=== PATIENT | male | born 1950 | race Caucasian/White ===

== ENCOUNTER 2016-03-30 12:30 | Outpatient (CLI) | payer MEDICARE, OTHER | END 2016-03-30 12:31 | disposition home or self-care (01) | DX: J11.89 Influenza due to unidentified influenza virus with other manifestations (principal) ==

== ENCOUNTER 2016-05-29 11:44 | Outpatient (CLI) | payer MEDICARE, BC | END 2016-05-29 11:45 | disposition home or self-care (01) | DX: G47.33 Obstructive sleep apnea (adult) (pediatric) (principal) | CPT/HCPCS: 99213; G0463 ==

== ENCOUNTER 2016-10-12 08:51 | Outpatient (CLI) | payer MEDICARE, BC ==
[2016-10-12 12:41] LABS: HCT - HEMATOCRIT 39.2 % (42.0-52.0); HGB - HEMOGLOBIN 13.3 g/dL (14.0-18.0); MEAN CORPUSCULAR HEMOGLOBIN 28.7 pg (27.0-31.0); MEAN CORPUSCULAR VOLUME 84.4 fL (80.0-94.0); MEAN PLATELET VOLUME 9.2 fL (7.4-11.4); RED BLOOD COUNT 4.65 10^6/uL (4.70-6.10); RED CELL DISTRIBUTION WIDTH 14.3 % (12.0-15.0); WHITE BLOOD COUNT 5.9 x10^3/uL (4.8-10.8)
[2016-10-14 12:37] LABS: ANA SCREEN NEGATIVE (NEGATIVE)
== END 2016-10-12 08:52 | disposition home or self-care (01) ==
LOC: LAB.WCP 08:51
PROVIDERS: ATTEND Family Medicine
DX: M19.90 Unspecified osteoarthritis, unspecified site (principal)
CPT/HCPCS: 36415; 84550; 85651; 86038; 86430

== ENCOUNTER 2016-12-18 08:00 | Outpatient (CLI) | payer MEDICARE, BC ==
[2016-12-18 19:37] LABS: CALCIUM 9.2 mg/dL (8.5-10.3); CARBON DIOXIDE - CO2 25 mmol/L (21-32); CHLORIDE 103 mmol/L (101-111); CHOLESTEROL 136 mg/dL; GLUCOSE 85 mg/dL (70-100); SODIUM 139 mmol/L (135-145)
[2016-12-18 20:02] LABS: ALBUMIN/GLOBULIN RATIO 1.3 (1.0-2.2); BILIRUBIN,TOTAL 0.8 mg/dL (0.2-1.0); BUN - BLOOD UREA NITROGEN 25 mg/dL (6-20); CHOL/HDL RATIO 4.4 (<5.0); HDL CHOLESTEROL 31 mg/dL; LDL/HDL RATIO 2.5 (<3.6); TOTAL PROTEIN 7.4 g/dL (6.7-8.2); TRIGLYCERIDES 147 mg/dL; VLDL CHOLESTEROL 29 mg/dL
[2016-12-18 20:21] LABS: CREATININE 1.5 mg/dL (0.6-1.2); GFR - MDRD 47 (>89)
[2016-12-18 20:49] LABS: HEMOGLOBIN A1C 0.81 g/dL
== END 2016-12-18 08:01 | disposition home or self-care (01) ==
LOC: LAB.WCP 08:00
PROVIDERS: ATTEND Physician Assistant Medical
DX: E11.9 Type 2 diabetes mellitus without complications (principal)
CPT/HCPCS: 36415; 80053; 80061; 83036

== ENCOUNTER 2017-01-27 07:30 | Outpatient (CLI) | payer MEDICARE, BC ==
--- NOTE | 2017-01-27 09:47 | CT Report ---
EXAM: CT SOFT TISSUE NECK WITHOUT CONTRAST. EXAM DATE: 01/27/2017 08:13 AM. HISTORY: 66-year-old man with semitubular lymph node. COMPARISONS: None. TECHNIQUE: Routine soft tissue neck CT protocol. Reconstructions: Coronal and sagittal. IV contrast: None. In accordance with CT protocol optimization, one or more of the following dose reduction techniques w ere utilized for this exam: automated exposure control, adjustment of mA and/or KV based on patient s ize, or use of iterative reconstructive technique. FINDINGS: Visualized Intracranial Contents: Unremarkable. Orbits: Unremarkable except for bilateral lens replacement surgery. Sinuses: Paranasal sinuses and mastoid air cells are clear. Pharynx and Oral Cavity: Parapharyngeal and retropharyngeal spaces are symmetric without mass lesion. Base of tongue and floor of mouth are symmetric without mass lesion. Pharyngeal airway is widely pat ent. Larynx: Symmetric without mass lesion. True vocal cords are symmetric. Airway is widely patent. Parotid and Submandibular Glands: Nodular mass is present in the inferior superficial right parotid g land measuring 2.4 x 1.6 cm in maximum axial dimensions and 2.3 cm craniocaudal. Smaller nodular lesi on is present in the left superficial parotid gland measuring 1.1 x 0.9 cm in maximum axial dimension s and 1.2 cm craniocaudal. The submandibular glands are unremarkable except for mild fatty atrophy. Lymph Nodes and Soft Tissues: No cervical or supraclavicular lymphadenopathy is present. In particula r, several submandibular lymph nodes are present, but all are normal in size and appearance. Soft tis sues are unremarkable. No mass lesion. Thyroid: Normal. Lung Apices: Clear. Bones: No acute fracture or malalignment. Status post ACDF of C4-C7. IMPRESSION: 1. Bilateral parotid masses measuring 2.4 cm in maximum diameter on the right and 1.2 cm on the left. 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 Biopsy is recommended for definitive diagnosis. 2. No enlarged or suspicious appearing lymph nodes are identified in the cervical or supraclavicular spaces. 3. Status post ACDF of C4-C7. [facility] Referring Provider Line: [phone] SITE ID: [id number]
== END 2017-01-27 07:31 | disposition home or self-care (01) ==
LOC: DI 07:30
PROVIDERS: ATTEND Family Medicine
DX: R59.0 Localized enlarged lymph nodes (principal)
CPT/HCPCS: 70490

== ENCOUNTER 2017-01-29 08:00 | Outpatient (CLI) | payer MEDICARE, BC ==
[2017-01-29 19:41] LABS: CALCIUM 8.9 mg/dL (8.5-10.3); CREATININE 1.5 mg/dL (0.6-1.2); POTASSIUM 4.2 mmol/L (3.5-5.0)
== END 2017-01-29 08:01 | disposition home or self-care (01) ==
LOC: LAB.WCP 08:00
PROVIDERS: ATTEND Family Medicine
DX: R59.0 Localized enlarged lymph nodes (principal)
CPT/HCPCS: 36415; 80048

== ENCOUNTER 2017-04-07 09:12 | Outpatient (CLI) | payer MEDICARE, BC ==
[2017-04-07 09:37] LABS: BASOPHILS % (AUTO) 0.6 %; EOSINOPHILS # (AUTO) 0.3 10^3/uL (0.0-0.7); EOSINOPHILS % (AUTO) 5.1 %; HGB - HEMOGLOBIN 13.6 g/dL (14.0-18.0); LYMPHOCYTES # (AUTO) 1.7 10^3/uL (1.5-3.5); LYMPHOCYTES % (AUTO) 25.9 %; MEAN CORPUSCULAR HEMOGLOBIN 28.9 pg (27.0-31.0); MEAN CORPUSCULAR HGB CONC 34.5 g/dL (32.0-36.0); MEAN CORPUSCULAR VOLUME 83.7 fL (80.0-94.0); MEAN PLATELET VOLUME 8.7 fL (7.4-11.4); MONOCYTES # (AUTO) 0.6 10^3/uL (0.0-1.0); MONOCYTES % (AUTO) 9.2 %; NEUTROPHILS # (AUTO) 3.8 10^3/uL (1.5-6.6); NEUTROPHILS % (AUTO) 59.2 %; PLT - PLATELET COUNT 135 10^3/uL (130-450); RED BLOOD COUNT 4.71 10^6/uL (4.70-6.10); WHITE BLOOD COUNT 6.4 x10^3/uL (4.8-10.8)
[2017-04-07 09:53] LABS: ALBUMIN/GLOBULIN RATIO 1.3 (1.0-2.2); ALKALINE PHOSPHATASE 79 IU/L (42-121); ALT ALANINE AMINOTRANSFERASE 28 IU/L (10-60); AST ASPARTATE AMINOTRANSFERASE 45 IU/L (10-42); BUN - BLOOD UREA NITROGEN 18 mg/dL (6-20); CALCIUM 9.1 mg/dL (8.5-10.3); CARBON DIOXIDE - CO2 27 mmol/L (21-32); CHLORIDE 101 mmol/L (101-111); CHOL/HDL RATIO 3.8 (<5.0); CHOLESTEROL 124 mg/dL; CREATININE 1.3 mg/dL (0.6-1.2); GFR - MDRD 55 (>89); GLUCOSE 134 mg/dL (70-100); HDL CHOLESTEROL 33 mg/dL; LDL CHOLESTEROL,CALCULATED 64 mg/dL; LDL/HDL RATIO 1.9 (<3.6); SODIUM 139 mmol/L (135-145); TOTAL PROTEIN 7.2 g/dL (6.7-8.2); VLDL CHOLESTEROL 27 mg/dL
[2017-04-10 15:40] LABS: HB2 TOTAL 14.9 g/dL; HEMOGLOBIN A1C 0.98 g/dL; HEMOGLOBIN A1C % 8.2 % (4.6-6.2)
== END 2017-04-07 09:13 | disposition home or self-care (01) ==
LOC: LAB 09:12
PROVIDERS: ATTEND Family Medicine
DX: I10 Essential (primary) hypertension (principal); E78.5 Hyperlipidemia, unspecified; E11.9 Type 2 diabetes mellitus without complications
CPT/HCPCS: 36415; 80053; 80061; 83036; 83721; 85025

== ENCOUNTER 2017-08-30 22:59 | Outpatient (CLI) | payer MEDICARE, BC | END 2017-08-30 23:59 | disposition EMS.NT | LOC: EMS 22:59 | PROVIDERS: ATTEND Surgery | DX: Z03.89 Encounter for observation for other suspected diseases and conditions ruled out (principal); W10.9XXA Fall (on) (from) unspecified stairs and steps, initial encounter ==